=== PATIENT | male | born 1945 | race Caucasian/White ===

== ENCOUNTER → 2019-09-03 | Day surgery (SDC) | payer OTHER ==
[~2019-09-03] MED LIST: CELEBREX100 MG PO; FUROSEMIDE40 MG PO; GLYCOPYRROLATE INJ 0.2 MG/ML VIAL ONE; LEVSIN0.125 MG SL; LINZESS290 MCG PO; LISINOPRIL10 MG PO; LYRICA75 MG PO; MORPHINE SULFAT30 M2 PO; NORCO 10-325 T1 EACH PO; PANTOPRAZOLE SO40 MG PO; POTASSIUM CHLO20 ME1 PO; PROMETHAZINE HC25 M1 PO; PROPOFOL IV EMULSION 10 MG/ML 20 ML VIAL ONE; ZOFRAN4 MG PO; [UNRECOGNIZED DRUG - OTHER] PO
--- OUTSIDE RECORDS SUMMARY | 2019-09-03 12:35 | XMS REPORT ---
Author Author [facility] Address Unknown Phone Unavailable Care Team Providers Care Automotive Service Consultant Name Role Phone Unavailable Unavailable Payers Payer Name Policy Type Policy Number Effective Date Expiration Date Problems This patient has no known problems. Allergies, Adverse Reactions, Alerts Allergy Name Allergy Type Status Severity Reaction(s) Onset Date Inactive Date Treating Clinician Comments No Known Allergies DA Active U 2019-05-10 00:00:00 No Known Allergies DA Active U 2018-08-30 00:00:00 No Known Drug Intolerances DA Active U 2009-02-18 00:00:00 No Known Contrast Allergies DA Active U 2009-02-13 00:00:00 No Known Drug Allergies DA Active U 2009-02-13 00:00:00 No Known Food Allergies DA Active U 2009-02-13 00:00:00 No Known Other Allergies DA Active U 2009-02-13 00:00:00 Medications This patient has no known medications. Results Test Description Test Time Test Comments Text Results Atomic Results Result Comments - XR CHEST 1 V 2019-07-24 10:01:00 Name: BERENICE CHAUDHRY [facility] : 1945 Age/S: 73 / M [id number] Unit #: [id number] Loc: [place] [address] Phys: Álvaro Rios MD Acct: [id number] Dis Date: Status: REG ER PHONE #: [phone] Exam Date: 07/24/2019 0954 FAX #: Reason: SOB EXAMS: CPT: [id number] XR CHEST 1 V 21451 Fluoro Time: DAP (Gy m2): Air Kerma (mGy): LOCATION: T18 EXAM: CHEST 1 VIEW INDICATION: , SOB COMPARISON: Chest x-ray July 19, 2019. TECHNIQUE: AP chest radiograph. FINDINGS: Lungs are clear bilaterally without effusion. Heart is normal in size. Intrathecal leads again noted. Aorta is tortuous. Bones are unchanged. IMPRESSION: Lungs are clear. No acute abnormality. at 1001 Reported and signed by: Robert Ang M.D. CC: Álvaro Rios MD; Julius Barnhart DO PAGE 1 Signed Report Name: BERENICE CHAUDHRY [facility] : 1945 Age/S: 73 / M [address] Unit #: [id number] Loc: [place] [address] Phys: Álvaro Rios MD Acct: [id number] Dis Date: Status: REG ER PHONE #: [phone] Exam Date: 07/24/2019 0954 FAX #: Reason: SOB EXAMS: CPT: [id number] XR CHEST 1 V 25928 Fluoro Time: DAP (Gy m2): Air Kerma (mGy): <Continued> Technologist: Kaur Harris, RT(R) Trnscb Date/Time: 07/24/2019 (1001) [email or web address] Orig Print D/T: S: 07/24/2019 (1004) PAGE 2 Signed Report CREATINE KINASE (CK) 2019-07-24 09:58:00 CREATINE KINASE (CK) (test code=CK) 264 Unit/L 26-192 NT PRO-BRAIN NATRIURETIC [id number] 09:58:00* Test Item Value Reference Range Comments NT PRO-BRAIN NATRIURETIC PEPTI (test code=PROBNP) 447 PG/ML 0-100 CBC W/O [id number] 09:43:00* Test Item Value Reference Range Comments WHITE BLOOD CELL (test code=WBC) 5.8 K/mm3 3.5-11.0 RED BLOOD CELL (test code=RBC) 3.49 M/mm3 4.70-6.10 HEMOGLOBIN (test code=HGB) 9.6 G/DL 12.3-15.9 HEMATOCRIT (test code=HCT) 29.1 % 35.8-46.7 MEAN CELL VOLUME (test code=MCV) 83.4 Fl 86.3-98.9 MEAN CELL HGB (test code=MCH) 27.5 pg 28.9-34.4 MEAN CELL HGB CONCETRATION (test code=MCHC) 33.0 G/DL 32.1-34.5 RED CELL DISTRIBUTION WIDTH (test code=RDW) 15.7 SD 11.5-14.5 PLATELET COUNT (test code=PLT) 256.0 K/mm3 150-450 MEAN PLATELET VOLUME (test code=MPV) 9.20 fL 7.0-9.6 TROPONIN I [id number] 09:39:00* Test Item Value Reference Range Comments TROPONIN I RAPID (test code=TROPIRAP) 0.04 ng/mL 0.00-0.08 - The use of serial sampling and testing protocol is a recommended practice- An elevated troponin level alone is often not sufficient for diagnosis of myocardial infarction. CHEMISTRY 8 [id number] 09:30:00* Test Item Value Reference Range Comments ISTAT-SODIUM (test code=NAP) mmol/L 135-146 ISTAT-POTASSIUM (test code=KP) mmol/L 3.5-4.9 ISTAT-CHLORIDE (test code=CLP) mmol/L 98-109 ISTAT-CARBON DIOXIDE (test code=ISTAT-CO2) mmol/L 24-29 ISTAT CALCIUM IONIZED (test code=ISTAT-OH) mmol/L 1.12-1.32 ISTAT-GLUCOSE (test code=GLUP) mg/dL 70-105 ISTAT-BUN (test code=BUNP) mg/dL 8-26 BEDSIDE CREATININE (test code=CREATBED) mg/dL 0.6-1.3 GLOMERULAR FILTRATION RATE POC (test code=GFRBED) 42 42-98 CHEMISTRY 8 [id number] 09:30:00* Test Item Value Reference Range Comments ISTAT-SODIUM (test code=NAP) 135 mmol/L 135-146 ISTAT-POTASSIUM (test code=KP) 2.7 mmol/L 3.5-4.9 ISTAT-CHLORIDE (test code=CLP) 88 mmol/L 98-109 ISTAT-CARBON DIOXIDE (test code=ISTAT-CO2) 31 mmol/L 24-29 ISTAT CALCIUM IONIZED (test code=ISTAT-HO) 1.10 mmol/L 1.12-1.32 ISTAT-GLUCOSE (test code=GLUP) 153 mg/dL 70-105 ISTAT-BUN (test code=BUNP) 19 mg/dL 8-26 BEDSIDE CREATININE (test code=CREATBED) 1.7 mg/dL 0.6-1.3 GLOMERULAR FILTRATION RATE POC (test code=GFRBED) 42 42-98 - CT C-SPINE W/O [id number] 14:43:00 Name: BERENICE CHAUDHRY [facility] : 1945 Age/S: 73 / M [address] Unit #: [id number] Loc: [place] [address] Phys: Aiden Carrillo MD Acct: [id number] Dis Date: Status: REG ER PHONE #: [phone] Exam Date: 07/19/2019 1430 FAX #: Reason: neck pain EXAMS: CPT: [id number] CT C-SPINE W/O CONT 00079 EXAM: - CT C-SPINE W/O CONT Location code:C3 HISTORY: 73 years -old Male with neck pain TECHNIQUE: Axial CT images through the cervical spine were obtained without intravenous contrast. Sagittal and coronal reformatted images were created from the data set. One or more of the following dose reduction techniques were used: Automated exposure control, adjustment of the mA and/or kV according to patient size, and/or utilization of iterative reconstruction technique. COMPARISON: None FINDINGS: Bones: There is cervical straightening. Postoperative changes are noted of prior anterior fusion from C3 through C6. There is osseous fusion of C6-7. There is anterolisthesis of C7 on T1. No acute fracture identified. The prevertebral soft tissues are within normal limits. No other acute abnormalities demonstrated. IMPRESSION: Postoperative changes and extensive multilevel degenerative changes of the spine are present. No acute fracture or other acute osseous abnormalities. at 1443 Reported and signed by: Binu Lowe M.D. CC: Ninfa ROOT; Aiden Carrillo MD Technologist:Justin Land RT(R)(CT) CTDI: DLP: Trnscb Date/Time: 07/19/2019 (7180) [email or web address] Orig Print D/T: S: 07/19/2019 (8471) PAGE 1 Signed Report COMPREHENSIVE METABOLIC [id number] 13:50:00* Test Item Value Reference Range Comments SODIUM (test code=NA) 135 mmol/L 134-147 POTASSIUM (test code=K) 3.1 mmol/L 3.4-5.0 CHLORIDE (test code=CL) 94 mmol/L 100-108 CARBON DIOXIDE (test code=CO2) 34 mmol/L 21-32 ANION GAP (test code=GAP) 7.0 GAP calc 4.0-15.0 GLUCOSE (test code=GLU) 101 MG/DL 70-110 BLOOD UREA NITROGEN (test code=BUN) 17 MG/DL 7-18 GLOMERULAR FILTRATION RATE (test code=GFR) 46 estGFR >60 CREATININE (test code=CREAT) 1.6 MG/DL 0.8-1.3 TOTAL PROTEIN (test code=PROT) 7.2 G/DL 6.4-8.2 ALBUMIN (test code=ALB) 3.6 G/DL 3.4-5.0 GLOBULIN (test code=GLOB) 3.6 GM/dL ALBUMIN/GLOBULIN RATIO (test code=A/G) 1.0 RATIO 1.2-2.2 CALCIUM (test code=CA) 8.6 MG/DL 8.5-10.1 BILIRUBIN TOTAL (test code=BILT) 0.60 MG/DL 0.2-1.2 SGOT/AST (test code=AST) 19 Unit/L 15-37 SGPT/ALT (test code=ALT) 20 Unit/L 12-78 ALKALINE PHOSPHATASE TOTAL (test code=ALKP) 114 Unit/L 50-136 NT PRO-BRAIN NATRIURETIC [id number] 13:50:00* Test Item Value Reference Range Comments NT PRO-BRAIN NATRIURETIC PEPTI (test code=PROBNP) 422 PG/ML 0-100 [id number] 13:50:00* Test Item Value Reference Range Comments TROPONIN-I (test code=TROPI) < 0.015 NG/ML 0.000-0.045 Negative: </=0.045 Positive: >/=0.046 Correlation with serial results, other cardiac markers, and clinical findings is necessary to determine the clinical significance of this result. Quantitative results using different methodologies should not be compared to one another as numerical results may varyby method. CBC W/O [id number] 13:32:00* Test Item Value Reference Range Comments WHITE BLOOD CELL (test code=WBC) 5.2 K/mm3 3.5-11.0 RED BLOOD CELL (test code=RBC) 3.47 M/mm3 4.70-6.10 HEMOGLOBIN (test code=HGB) 9.6 G/DL 12.3-15.9 HEMATOCRIT (test code=HCT) 29.1 % 35.8-46.7 MEAN CELL VOLUME (test code=MCV) 83.9 Fl 86.3-98.9 MEAN CELL HGB (test code=MCH) 27.7 pg 28.9-34.4 MEAN CELL HGB CONCETRATION (test code=MCHC) 33.0 G/DL 32.1-34.5 RED CELL DISTRIBUTION WIDTH (test code=RDW) 16.1 SD 11.5-14.5 PLATELET COUNT (test code=PLT) 231.0 K/mm3 150-450 MEAN PLATELET VOLUME (test code=MPV) 9.70 fL 7.0-9.6 - XR CHEST 1 [id number] 13:24:00 Name: BERENICE CHAUDHRY [facility] : 1945 Age/S: 73 / M [address] [facility] [address] Unit #: [id number] Loc: [place] [address] Phys: Aiden Carrillo MD Acct: [id number] Dis Date: Status: REG ER PHONE #: [phone] Exam Date: 07/19/2019 1325 FAX #: Reason: SOB EXAMS: CPT: [id number] XR CHEST 1 V 01710 Fluoro Time: DAP (Gy m2): Air Kerma (mGy): EXAMINATION: - XR CHEST 1 V. LOCATION: S17. HISTORY: SOB, neck pain. COMPARISON: Chest x-ray 05/26/19. FINDINGS: Examination is limited due to portable technique, patient body habitus and low lung volumes. Cardiac silhouette/Mediastinal contour: Prominence of cardiac silhouette. Atherosclerotic calcification of aortic arch and uncoiling of thoracic aorta. Lungs: No focal consolidation. No large pleural effusion. Right middle lobe atelectasis versus scarring reidentified. Osseous Structures: Degenerative changes of thoracic spine. Additional Findings: ACDF involving cervical spine. Thoracic spinal stimulator device noted. IMPRESSION: No focal consolidation. Other findings as above. at 1324 Reported and signed by: Dianna Clifton M.D. CC: Ninfa ROOT; Aiden figueroa MD PAGE 1 Signed Report Name: BERENICE CHAUDHRY [facility] [place] : 1945 Age/S: 73 / M [address] Unit #: [id number] Loc: [place] [address] Phys: Aiden Carrillo MD Acct: [id number] Dis Date: Status: REG ER PHONE #: [phone] Exam Date: 07/19/2019 1320 FAX #: Reason: SOB EXAMS: CPT: [id number] XR CHEST 1 V 71623 Fluoro Time: DAP (Gy m2): Air Kerma (mGy): <Continued> Technologist: Justin Land RT(R)(CT) Trnscb Date/Time: 07/19/2019 (1244) [email or web address] Orig Print D/T: S: 07/19/2019 (0075) PAGE 2 Signed Report CBC W/AUTO [id number] 04:12:00* Test Item Value Reference Range Comments WHITE BLOOD CELL (test code=WBC) 5.1 K/mm3 3.5-11.0 RED BLOOD CELL (test code=RBC) 3.36 M/mm3 4.70-6.10 HEMOGLOBIN (test code=HGB) 9.5 G/DL 12.3-15.9 HEMATOCRIT (test code=HCT) 28.4 % 35.8-46.7 MEAN CELL VOLUME (test code=MCV) 84.5 Fl 86.3-98.9 MEAN CELL HGB (test code=MCH) 28.3 pg 28.9-34.4 MEAN CELL HGB CONCETRATION (test code=MCHC) 33.5 G/DL 32.1-34.5 RED CELL DISTRIBUTION WIDTH (test code=RDW) 15.7 SD 11.5-14.5 PLATELET COUNT (test code=PLT) 179.0 K/mm3 150-450 MEAN PLATELET VOLUME (test code=MPV) 9.80 fL 7.0-9.6 NEUTROPHIL % (test code=NT%) 77.7 % 40-76 LYMPHOCYTE % (test code=LY%) 9.7 % 20.5-51.1 MONOCYTE % (test code=MO%) 7.9 % 1.7-9.3 EOSINOPHIL % (test code=EO%) 4.3 % 0.0-6.0 BASOPHIL % (test code=BA%) 0.4 % 0.0-2.0 NEUTROPHIL # (test code=NT#) 3.93 K/mm3 1.8-7.6 LYMPHOCYTE # (test code=LY#) 0.5 K/mm3 0.6-3.0 MONOCYTE # (test code=MO#) 0.4 K/mm3 0.2-1.5 EOSINOPHIL # (test code=EO#) 0.2 K/mm3 0.0-0.4 BASOPHIL # (test code=BA#) 0.0 K/mm3 0.0-0.2 MANUAL DIFF REQUIRED (test code=MDIFF) NO DIFF/SCN CRITERIA SLIDE REVIEW CONSISTANT WITH AUTO DIFFERENTIAL. BASIC METABOLIC [id number] 04:02:00* Test Item Value Reference Range Comments SODIUM (test code=NA) 139 mmol/L 134-147 POTASSIUM (test code=K) 4.1 mmol/L 3.4-5.0 CHLORIDE (test code=CL) 99 mmol/L 100-108 CARBON DIOXIDE (test code=CO2) 32 mmol/L 21-32 ANION GAP (test code=GAP) 8.0 GAP calc 4.0-15.0 GLUCOSE (test code=GLU) 104 MG/DL 70-110 BLOOD UREA NITROGEN (test code=BUN) 21 MG/DL 7-18 GLOMERULAR FILTRATION RATE (test code=GFR) 46 estGFR >60 CREATININE (test code=CREAT) 1.6 MG/DL 0.8-1.3 CALCIUM (test code=CA) 8.8 MG/DL 8.5-10.1 CBC W/AUTO [id number] 03:56:00* Test Item Value Reference Range Comments WHITE BLOOD CELL (test code=WBC) 5.1 K/mm3 3.5-11.0 RED BLOOD CELL (test code=RBC) 3.36 M/mm3 4.70-6.10 HEMOGLOBIN (test code=HGB) 9.5 G/DL 12.3-15.9 HEMATOCRIT (test code=HCT) 28.4 % 35.8-46.7 MEAN CELL VOLUME (test code=MCV) 84.5 Fl 86.3-98.9 MEAN CELL HGB (test code=MCH) 28.3 pg 28.9-34.4 MEAN CELL HGB CONCETRATION (test code=MCHC) 33.5 G/DL 32.1-34.5 RED CELL DISTRIBUTION WIDTH (test code=RDW) 15.7 SD 11.5-14.5 PLATELET COUNT (test code=PLT) 179.0 K/mm3 150-450 MEAN PLATELET VOLUME (test code=MPV) 9.80 fL 7.0-9.6 NEUTROPHIL % (test code=NT%) % 40-76 LYMPHOCYTE % (test code=LY%) % 20.5-51.1 MONOCYTE % (test code=MO%) % 1.7-9.3 EOSINOPHIL % (test code=EO%) % 0.0-6.0 BASOPHIL % (test code=BA%) % 0.0-2.0 NEUTROPHIL # (test code=NT#) K/mm3 1.8-7.6 LYMPHOCYTE # (test code=LY#) K/mm3 0.6-3.0 MONOCYTE # (test code=MO#) K/mm3 0.2-1.5 EOSINOPHIL # (test code=EO#) K/mm3 0.0-0.4 BASOPHIL # (test code=BA#) K/mm3 0.0-0.2 MANUAL DIFF REQUIRED (test code=MDIFF) DIFF/SCN CRITERIA - XR T-SPINE 2 [id number] 19:07:00 Name: BERENICE CHAUDHRY [facility] : 1945 Age/S: 73 / M [address] Unit #: [id number] Loc: [place] [address] Phys: Jose Bains MD Acct: [id number] Dis Date: Status: ADM IN PHONE #: [phone] Exam Date: 05/27/2019 1825 FAX #: Reason: pain EXAMS: CPT: [id number] XR T-SPINE 2 VIEWS 45002 Fluoro Time: DAP (Gy m2): Air Kerma (mGy): LOCATION: Q15 HISTORY: 73-year-old male who presents with mid back pain. COMMENT: Frontal, lateral, and swimmers lateral radiographs of the thoracic spine were examined. The skeleton is intact and the alignment is anatomic. Mild degenerative disc disease is seen throughout the anatomy. The paraspinous soft tissues are unremarkable. Dorsal column stimulator electrodes are present, and orthopedic hardware is seen in the lower cervical spine. IMPRESSION: There is no radiographic evidence of acute or destructive lesions in this patient's thoracic spine. Please see above comments for details. at 190 Reported and signed by: Binu Carty M.D. CC: Julius Barnhart DO; Jose Bains MD PAGE 1 Signed Report Name: BERENICE CHAUDHRY [facility] : 1945 Age/S: 73 / M [address] Unit #: [id number] Loc: [place] [address] Phys: Jose Bains MD Acct: [id number] Dis Date: Status: ADM IN PHONE #: [phone] Exam Date: 05/27/2019 1825 FAX #: Reason: pain EXAMS: CPT: [id number] XR T-SPINE 2 VIEWS 66701 Fluoro Time: DAP (Gy m2): Air Kerma (mGy): <Continued> Technologist: Ming Kirkpatrick, RT(R)(CT) Trnscb Date/Time: 05/27/2019 (1906) [email or web address] Orig Print D/T: S: 05/27/2019 (1909) PAGE 2 Signed Report CBC W/AUTO [id number] 04:03:00* Test Item Value Reference Range Comments WHITE BLOOD CELL (test code=WBC) 4.3 K/mm3 3.5-11.0 RED BLOOD CELL (test code=RBC) 3.01 M/mm3 4.70-6.10 HEMOGLOBIN (test code=HGB) 8.4 G/DL 12.3-15.9 HEMATOCRIT (test code=HCT) 25.5 % 35.8-46.7 MEAN CELL VOLUME (test code=MCV) 84.7 Fl 86.3-98.9 MEAN CELL HGB (test code=MCH) 27.9 pg 28.9-34.4 MEAN CELL HGB CONCETRATION (test code=MCHC) 32.9 G/DL 32.1-34.5 RED CELL DISTRIBUTION WIDTH (test code=RDW) 15.9 SD 11.5-14.5 PLATELET COUNT (test code=PLT) 162.0 K/mm3 150-450 MEAN PLATELET VOLUME (test code=MPV) 9.50 fL 7.0-9.6 NEUTROPHIL % (test code=NT%) 68.7 % 40-76 LYMPHOCYTE % (test code=LY%) 17.6 % 20.5-51.1 MONOCYTE % (test code=MO%) 8.6 % 1.7-9.3 EOSINOPHIL % (test code=EO%) 4.4 % 0.0-6.0 BASOPHIL % (test code=BA%) 0.7 % 0.0-2.0 NEUTROPHIL # (test code=NT#) 2.97 K/mm3 1.8-7.6 LYMPHOCYTE # (test code=LY#) 0.8 K/mm3 0.6-3.0 MONOCYTE # (test code=MO#) 0.4 K/mm3 0.2-1.5 EOSINOPHIL # (test code=EO#) 0.2 K/mm3 0.0-0.4 BASOPHIL # (test code=BA#) 0.0 K/mm3 0.0-0.2 MANUAL DIFF REQUIRED (test code=MDIFF) NO DIFF/SCN CRITERIA BASIC METABOLIC [id number] 04:03:00* Test Item Value Reference Range Comments SODIUM (test code=NA) 136 mmol/L 134-147 POTASSIUM (test code=K) 3.6 mmol/L 3.4-5.0 CHLORIDE (test code=CL) 98 mmol/L 100-108 CARBON DIOXIDE (test code=CO2) 31 mmol/L 21-32 ANION GAP (test code=GAP) 7.0 GAP calc 4.0-15.0 GLUCOSE (test code=GLU) 102 MG/DL 70-110 BLOOD UREA NITROGEN (test code=BUN) 20 MG/DL 7-18 GLOMERULAR FILTRATION RATE (test code=GFR) 53 estGFR >60 CREATININE (test code=CREAT) 1.4 MG/DL 0.8-1.3 CALCIUM (test code=CA) 8.5 MG/DL 8.5-10.1 UA RFLX MICR CULT IF [id number] 03:17:00* Test Item Value Reference Range Comments UA COLOR (test code=COLU) YELLOW discript YEL/STRAW UA APPEARANCE (test code=APPU) CLEAR discript CLEAR UA GLUCOSE DIPSTICK (test code=DGLUU) NEGATIVE mg/dL NEG UA BILIRUBIN DIPSTICK (test code=BILU) NEGATIVE mg/dL NEG UA KETONE DIPSTICK (test code=KETU) NEGATIVE mg/dL NEG UA SPECIFIC GRAVITY (test code=SGU) <=1.005 SG 1.005-1.030 UA BLOOD DIPSTICK (test code=FELECIA) 1+ mg/DL NEG UA PH DIPSTICK (test code=JAKUB) 7.0 pH UNITS 5.0-7.0 UA PROTEIN DIPSTICK (test code=PROU) NEGATIVE mg/dL NEG UA UROBILINIOGEN DIPSTICK (test code=URO) 0.2 mg/dL <2.0 UA NITRITE DIPSTICK (test code=JHONATHAN) POSITIVE SCREEN NEG UA LEUKOCYTE ESTERASE DIPSTICK (test code=LEUU) 2+ Leuk/mcL NEGATIVE UA WBC (test code=WBCU) 10-20 #WBC/HPF 0-3 UA RBC (test code=RBCU) 0-1 #RBC/HPF 0-3 UA BACTERIA (test code=BACU) 1+ /HPF NONE-TRACE UA SQUAMOUS CELLS (test code=SQU) TRACE /HPF NONE UA CULTURE NEEDED? (test code=UACULT) YES,WBC>10 & EPI<25 Criteria Culture CHK SOURCE OF URINE: MAGDALENO CATHETERIndication for culture: Suprapubic PainUA RFLX MICR CULT IF [id number] 03:07:00* Test Item Value Reference Range Comments UA COLOR (test code=COLU) YELLOW discript YEL/STRAW UA APPEARANCE (test code=APPU) CLEAR discript CLEAR UA GLUCOSE DIPSTICK (test code=DGLUU) NEGATIVE mg/dL NEG UA BILIRUBIN DIPSTICK (test code=BILU) NEGATIVE mg/dL NEG UA KETONE DIPSTICK (test code=KETU) NEGATIVE mg/dL NEG UA SPECIFIC GRAVITY (test code=SGU) <=1.005 SG 1.005-1.030 UA BLOOD DIPSTICK (test code=FELECIA) 1+ mg/DL NEG UA PH DIPSTICK (test code=JAKUB) 7.0 pH UNITS 5.0-7.0 UA PROTEIN DIPSTICK (test code=PROU) NEGATIVE mg/dL NEG UA UROBILINIOGEN DIPSTICK (test code=URO) 0.2 mg/dL <2.0 UA NITRITE DIPSTICK (test code=JHONATHAN) POSITIVE SCREEN NEG UA LEUKOCYTE ESTERASE DIPSTICK (test code=LEUU) 2+ Leuk/mcL NEGATIVE UA CULTURE NEEDED? (test code=UACULT) Criteria Culture CHK SOURCE OF URINE: MAGDALENO CATHETERIndication for culture: Suprapubic PainCBC W/AUTO [id number] 01:14:00* Test Item Value Reference Range Comments WHITE BLOOD CELL (test code=WBC) 4.5 K/mm3 3.5-11.0 RED BLOOD CELL (test code=RBC) 3.19 M/mm3 4.70-6.10 HEMOGLOBIN (test code=HGB) 9.0 G/DL 12.3-15.9 HEMATOCRIT (test code=HCT) 26.8 % 35.8-46.7 MEAN CELL VOLUME (test code=MCV) 84.0 Fl 86.3-98.9 MEAN CELL HGB (test code=MCH) 28.2 pg 28.9-34.4 MEAN CELL HGB CONCETRATION (test code=MCHC) 33.6 G/DL 32.1-34.5 RED CELL DISTRIBUTION WIDTH (test code=RDW) 15.7 SD 11.5-14.5 PLATELET COUNT (test code=PLT) 165.0 K/mm3 150-450 MEAN PLATELET VOLUME (test code=MPV) 9.00 fL 7.0-9.6 NEUTROPHIL % (test code=NT%) 74.1 % 40-76 LYMPHOCYTE % (test code=LY%) 12.6 % 20.5-51.1 MONOCYTE % (test code=MO%) 9.1 % 1.7-9.3 EOSINOPHIL % (test code=EO%) 3.8 % 0.0-6.0 BASOPHIL % (test code=BA%) 0.4 % 0.0-2.0 NEUTROPHIL # (test code=NT#) 3.35 K/mm3 1.8-7.6 LYMPHOCYTE # (test code=LY#) 0.6 K/mm3 0.6-3.0 MONOCYTE # (test code=MO#) 0.4 K/mm3 0.2-1.5 EOSINOPHIL # (test code=EO#) 0.2 K/mm3 0.0-0.4 BASOPHIL # (test code=BA#) 0.0 K/mm3 0.0-0.2 MANUAL DIFF REQUIRED (test code=MDIFF) NO DIFF/SCN CRITERIA SLIDE REVIEW CONSISTANT WITH AUTO DIFFERENTIAL. CBC W/AUTO [id number] 01:13:00* Test Item Value Reference Range Comments WHITE BLOOD CELL (test code=WBC) 4.5 K/mm3 3.5-11.0 RED BLOOD CELL (test code=RBC) 3.19 M/mm3 4.70-6.10 HEMOGLOBIN (test code=HGB) 9.0 G/DL 12.3-15.9 HEMATOCRIT (test code=HCT) 26.8 % 35.8-46.7 MEAN CELL VOLUME (test code=MCV) 84.0 Fl 86.3-98.9 MEAN CELL HGB (test code=MCH) 28.2 pg 28.9-34.4 MEAN CELL HGB CONCETRATION (test code=MCHC) 33.6 G/DL 32.1-34.5 RED CELL DISTRIBUTION WIDTH (test code=RDW) 15.7 SD 11.5-14.5 PLATELET COUNT (test code=PLT) 165.0 K/mm3 150-450 MEAN PLATELET VOLUME (test code=MPV) 9.00 fL 7.0-9.6 NEUTROPHIL % (test code=NT%) % 40-76 LYMPHOCYTE % (test code=LY%) % 20.5-51.1 MONOCYTE % (test code=MO%) % 1.7-9.3 EOSINOPHIL % (test code=EO%) % 0.0-6.0 BASOPHIL % (test code=BA%) % 0.0-2.0 NEUTROPHIL # (test code=NT#) K/mm3 1.8-7.6 LYMPHOCYTE # (test code=LY#) K/mm3 0.6-3.0 MONOCYTE # (test code=MO#) K/mm3 0.2-1.5 EOSINOPHIL # (test code=EO#) K/mm3 0.0-0.4 BASOPHIL # (test code=BA#) K/mm3 0.0-0.2 MANUAL DIFF REQUIRED (test code=MDIFF) DIFF/SCN CRITERIA [id number] 00:24:00* Test Item Value Reference Range Comments POTASSIUM (test code=K) 3.1 mmol/L 3.4-5.0 Completed by Nursing: [id number] 00:24:00* Test Item Value Reference Range Comments TROPONIN-I (test code=TROPI) < 0.015 NG/ML 0.000-0.045 Negative: </=0.045 Positive: >/=0.046 Correlation with serial results, other cardiac markers, and clinical findings is necessary to determine the clinical significance of this result. Quantitative results using different methodologies should not be compared to one another as numerical results may varyby method. Completed by Nursing: [id number] 20:51:00* Test Item Value Reference Range Comments TROPONIN-I (test code=TROPI) < 0.015 NG/ML 0.000-0.045 Negative: </=0.045 Positive: >/=0.046 Correlation with serial results, other cardiac markers, and clinical findings is necessary to determine the clinical significance of this result. Quantitative results using different methodologies should not be compared to one another as numerical results may varyby method. Completed by Nursing: NOPROTHROMBIN [id number] 19:19:00* Test Item Value Reference Range Comments PT PATIENT (test code=PTP) 13.1 SECONDS 9.3-12.9 INTERNATIONAL NORMAL RATIO (test code=INR) 1.14 INR Unit 0.8-1.2 THROMBOPLASTIN TIME [id number] 19:19:00* Test Item Value Reference Range Comments THROMBOPLASTIN TIME PARTIAL (test code=PTT) 32.1 SECONDS 26-35 COMPREHENSIVE METABOLIC [id number] 19:16:00* Test Item Value Reference Range Comments SODIUM (test code=NA) 137 mmol/L 134-147 POTASSIUM (test code=K) 2.9 mmol/L 3.4-5.0 CHLORIDE (test code=CL) 95 mmol/L 100-108 CARBON DIOXIDE (test code=CO2) 32 mmol/L 21-32 ANION GAP (test code=GAP) 10.0 GAP calc 4.0-15.0 GLUCOSE (test code=GLU) 162 MG/DL 70-110 BLOOD UREA NITROGEN (test code=BUN) 21 MG/DL 7-18 GLOMERULAR FILTRATION RATE (test code=GFR) 46 estGFR >60 CREATININE (test code=CREAT) 1.6 MG/DL 0.8-1.3 TOTAL PROTEIN (test code=PROT) 7.1 G/DL 6.4-8.2 ALBUMIN (test code=ALB) 3.5 G/DL 3.4-5.0 GLOBULIN (test code=GLOB) 3.6 GM/dL ALBUMIN/GLOBULIN RATIO (test code=A/G) 1.0 RATIO 1.2-2.2 CALCIUM (test code=CA) 8.7 MG/DL 8.5-10.1 BILIRUBIN TOTAL (test code=BILT) 0.40 MG/DL 0.2-1.2 SGOT/AST (test code=AST) 25 Unit/L 15-37 SGPT/ALT (test code=ALT) 27 Unit/L 12-78 ALKALINE PHOSPHATASE TOTAL (test code=ALKP) 123 Unit/L 50-136 CREATINE KINASE (CK)2019-05-26 19:16:00* Test Item Value Reference Range Comments CREATINE KINASE (CK) (test code=CK) 115 Unit/L 26-192 NT PRO-BRAIN NATRIURETIC [id number] 19:16:00* Test Item Value Reference Range Comments NT PRO-BRAIN NATRIURETIC PEPTI (test code=PROBNP) 482 PG/ML 0-100 [id number] 19:16:00* Test Item Value Reference Range Comments TROPONIN-I (test code=TROPI) < 0.015 NG/ML 0.000-0.045 Negative: </=0.045 Positive: >/=0.046 Correlation with serial results, other cardiac markers, and clinical findings is necessary to determine the clinical significance of this result. Quantitative results using different methodologies should not be compared to one another as numerical results may varyby method. - XR CHEST 1 [id number] 19:16:00 Name: BERENICE CHAUDHRY [facility] : 1945 Age/S: 73 / M [id number] [address] Unit #: [id number] Loc: [place] [address] Phys: Milly Narayanan MD Acct: [id number] Dis Date: Status: REG ER PHONE #: [phone] Exam Date: 05/26/20191905 FAX #: Reason: Chest Pain EXAMS: CPT: [id number] XR CHEST 1 V [id number] Fluoro Time: DAP (Gy m2): Air Kerma (mGy): EXAM: - XR CHEST 1 V HISTORY: Chest pain. COMPARISON: May 20, 2019. FINDINGS: Single AP view of the chest is provided. Heart size and vascularity are within normal limits. Ectatic thoracic aorta. Trace linear atelectasis in mid right lung. The lungs are clear of focal consolidation. No effusion, pneumothorax, or acute osseous abnormality. There is no significant change compared to previous exam. Spinal stimulator projecting over the mid thoracic spine. IMPRESSION: No interval change. No consolidation or effusion. at 1916 Reported and signed by: Sarath Williamson M.D. CC: Milly Narayanan MD; Julius Barnhart DO; Ninfa ROOT PAGE 1 Signed Report Name: BERENICE CHAUDHRY [facility] : 1945 Age/S: 73 / M [address] Unit #: [id number] Loc: [place] [address] Phys: Milly Narayanan MD Acct: [id number] Dis Date: Status: REG ER PHON E #: [phone] Exam Date: 05/26/20191905 FAX #: Reason: Chest Pain EXAMS: CPT: [id number] XR CHEST 1 V 17607 Fluoro Time: DAP (Gy m2): Air Kerma (mGy): <Continued> Technologist: Debbie Minor, RT(R)(CT); ... Trnscb Date/Time: 05/26/2019 (1915) Anders4 Orig Print D/T: S: 05/26/2019 (459) PAGE 2 Signed Report URINALYSIS [id number] 18:56:00* Test Item Value Reference Range Comments UA GLUCOSE DIPSTICK (test code=DGLUU) NEGATIVE mg/dL NEG UA BILIRUBIN DIPSTICK (test code=BILU) NEGATIVE mg/dL NEG UA KETONE DIPSTICK (test code=KETU) NEGATIVE mg/dL NEG UA SPECIFIC GRAVITY (test code=SGU) 1.010 SG 1.005-1.030 UA BLOOD DIPSTICK (test code=FELECIA) 2+ mg/DL NEG UA PH DIPSTICK (test code=JAKUB) 6.0 pH UNITS 5.0-7.0 UA PROTEIN DIPSTICK (test code=PROU) NEGATIVE mg/dL NEG UA UROBILINIOGEN DIPSTICK (test code=URO) 0.2 mg/dL <2.0 UA NITRITE DIPSTICK (test code=JHONATHAN) POSITIVE SCREEN NEG UA LEUKOCYTE ESTERASE DIPSTICK (test code=LEUU) 2+ Leuk/mcL NEGATIVE Urine Specimen Type: Magdaleno CatheterCOMPREHENSIVE METABOLIC [id number] 06:48:00* Test Item Value Reference Range Comments SODIUM (test code=NA) 137 mmol/L 134-147 POTASSIUM (test code=K) 3.4 mmol/L 3.4-5.0 CHLORIDE (test code=CL) 101 mmol/L 100-108 CARBON DIOXIDE (test code=CO2) 28 mmol/L 21-32 ANION GAP (test code=GAP) 8.0 GAP calc 4.0-15.0 GLUCOSE (test code=GLU) 86 MG/DL 70-110 BLOOD UREA NITROGEN (test code=BUN) 26 MG/DL 7-18 GLOMERULAR FILTRATION RATE (test code=GFR) 49 estGFR >60 CREATININE (test code=CREAT) 1.5 MG/DL 0.8-1.3 TOTAL PROTEIN (test code=PROT) 6.9 G/DL 6.4-8.2 ALBUMIN (test code=ALB) 3.7 G/DL 3.4-5.0 GLOBULIN (test code=GLOB) 3.2 GM/dL ALBUMIN/GLOBULIN RATIO (test code=A/G) 1.2 RATIO 1.2-2.2 CALCIUM (test code=CA) 9.1 MG/DL 8.5-10.1 BILIRUBIN TOTAL (test code=BILT) 0.50 MG/DL 0.2-1.2 SGOT/AST (test code=AST) 44 Unit/L 15-37 SGPT/ALT (test code=ALT) 36 Unit/L 12-78 ALKALINE PHOSPHATASE TOTAL (test code=ALKP) 100 Unit/L 50-136 CBC W/AUTO [id number] 06:33:00* Test Item Value Reference Range Comments WHITE BLOOD CELL (test code=WBC) 5.7 K/mm3 3.5-11.0 RED BLOOD CELL (test code=RBC) 3.96 M/mm3 4.70-6.10 HEMOGLOBIN (test code=HGB) 11.2 G/DL 12.3-15.9 HEMATOCRIT (test code=HCT) 33.8 % 35.8-46.7 MEAN CELL VOLUME (test code=MCV) 85.4 Fl 86.3-98.9 MEAN CELL HGB (test code=MCH) 28.3 pg 28.9-34.4 MEAN CELL HGB CONCETRATION (test code=MCHC) 33.1 G/DL 32.1-34.5 RED CELL DISTRIBUTION WIDTH (test code=RDW) 15.9 SD 11.5-14.5 PLATELET COUNT (test code=PLT) 193.0 K/mm3 150-450 MEAN PLATELET VOLUME (test code=MPV) 9.50 fL 7.0-9.6 NEUTROPHIL % (test code=NT%) 69.7 % 40-76 LYMPHOCYTE % (test code=LY%) 17.5 % 20.5-51.1 MONOCYTE % (test code=MO%) 7.8 % 1.7-9.3 EOSINOPHIL % (test code=EO%) 4.1 % 0.0-6.0 BASOPHIL % (test code=BA%) 0.9 % 0.0-2.0 NEUTROPHIL # (test code=NT#) 3.94 K/mm3 1.8-7.6 LYMPHOCYTE # (test code=LY#) 1.0 K/mm3 0.6-3.0 MONOCYTE # (test code=MO#) 0.4 K/mm3 0.2-1.5 EOSINOPHIL # (test code=EO#) 0.2 K/mm3 0.0-0.4 BASOPHIL # (test code=BA#) 0.1 K/mm3 0.0-0.2 MANUAL DIFF REQUIRED (test code=MDIFF) NO DIFF/SCN CRITERIA COMPREHENSIVE METABOLIC [id number] 07:48:00* Test Item Value Reference Range Comments SODIUM (test code=NA) 138 mmol/L 134-147 POTASSIUM (test code=K) 3.3 mmol/L 3.4-5.0 CHLORIDE (test code=CL) 102 mmol/L 100-108 CARBON DIOXIDE (test code=CO2) 29 mmol/L 21-32 ANION GAP (test code=GAP) 7.0 GAP calc 4.0-15.0 GLUCOSE (test code=GLU) 108 MG/DL 70-110 BLOOD UREA NITROGEN (test code=BUN) 29 MG/DL 7-18 GLOMERULAR FILTRATION RATE (test code=GFR) 46 estGFR >60 CREATININE (test code=CREAT) 1.6 MG/DL 0.8-1.3 TOTAL PROTEIN (test code=PROT) 6.5 G/DL 6.4-8.2 ALBUMIN (test code=ALB) 3.5 G/DL 3.4-5.0 GLOBULIN (test code=GLOB) 3.0 GM/dL ALBUMIN/GLOBULIN RATIO (test code=A/G) 1.2 RATIO 1.2-2.2 CALCIUM (test code=CA) 8.7 MG/DL 8.5-10.1 BILIRUBIN TOTAL (test code=BILT) 0.40 MG/DL 0.2-1.2 SGOT/AST (test code=AST) 55 Unit/L 15-37 SGPT/ALT (test code=ALT) 38 Unit/L 12-78 ALKALINE PHOSPHATASE TOTAL (test code=ALKP) 99 Unit/L 50-136 CPK-MB [id number] 07:48:00* Test Item Value Reference Range Comments CREATINE KINASE (CK) (test code=CK) 605 Unit/L 26-192 CKMB (test code=CKMBT) 9.0 NG/ML 0.0-4.9 RELATIVE % INDEX (test code=REL%) 1.4 % 0.0-2.5 [id number] 07:48:00* Test Item Value Reference Range Comments TROPONIN-I (test code=TROPI) < 0.015 NG/ML 0.000-0.045 Negative: </=0.045 Positive: >/=0.046 Correlation with serial results, other cardiac markers, and clinical findings is necessary to determine the clinical significance of this result. Quantitative results using different methodologies should not be compared to one another as numerical results may varyby method. CBC W/AUTO [id number] 07:16:00* Test Item Value Reference Range Comments WHITE BLOOD CELL (test code=WBC) 5.1 K/mm3 3.5-11.0 RED BLOOD CELL (test code=RBC) 3.49 M/mm3 4.70-6.10 HEMOGLOBIN (test code=HGB) 9.8 G/DL 12.3-15.9 HEMATOCRIT (test code=HCT) 30.3 % 35.8-46.7 MEAN CELL VOLUME (test code=MCV) 86.8 Fl 86.3-98.9 MEAN CELL HGB (test code=MCH) 28.1 pg 28.9-34.4 MEAN CELL HGB CONCETRATION (test code=MCHC) 32.3 G/DL 32.1-34.5 RED CELL DISTRIBUTION WIDTH (test code=RDW) 16.2 SD 11.5-14.5 PLATELET COUNT (test code=PLT) 169.0 K/mm3 150-450 MEAN PLATELET VOLUME (test code=MPV) 9.90 fL 7.0-9.6 NEUTROPHIL % (test code=NT%) 75.3 % 40-76 LYMPHOCYTE % (test code=LY%) 14.9 % 20.5-51.1 MONOCYTE % (test code=MO%) 8.0 % 1.7-9.3 EOSINOPHIL % (test code=EO%) 1.6 % 0.0-6.0 BASOPHIL % (test code=BA%) 0.2 % 0.0-2.0 NEUTROPHIL # (test code=NT#) 3.84 K/mm3 1.8-7.6 LYMPHOCYTE # (test code=LY#) 0.8 K/mm3 0.6-3.0 MONOCYTE # (test code=MO#) 0.4 K/mm3 0.2-1.5 EOSINOPHIL # (test code=EO#) 0.1 K/mm3 0.0-0.4 BASOPHIL # (test code=BA#) 0.0 K/mm3 0.0-0.2 MANUAL DIFF REQUIRED (test code=MDIFF) NO DIFF/SCN CRITERIA CPK-MB [id number] 23:11:00* Test Item Value Reference Range Comments CREATINE KINASE (CK) (test code=CK) 891 Unit/L 26-192 CKMB (test code=CKMBT) 12.5 NG/ML 0.0-4.9 RELATIVE % INDEX (test code=REL%) 1.4 % 0.0-2.5 - CT HEAD/BRAIN W/O [id number] 13:53:00 Name: BERENICE CHAUDHRY [facility] Sergio : 1945 Age/S: 73 / M [address] Unit #: [id number] Loc: [place] [address] Phys: Curt Martin MD Acct: [id number] Dis Date: Status: ADM IN PHONE #: [phone] Exam Date: 05/10/2019 1340 FAX #: Reason: Confusion EXAMS: CPT: [id number] CT HEAD/BRAIN W/O CONT 16792 Dictation location: L11. CT HEAD WITHOUT CONTRAST. HISTORY: Confusion COMPARISON: CT head 08/30/18. TECHNIQUE: Axial CT images of the head were obtained with coronal and/or sagittal reformatted views. Automated exposure control, iterative reconstruction technique, and/or adjustment of mA and/or kV according to patient's size was utilized for radiation dose reduction. IV CONTRAST: None. FINDINGS: Mild amount of periventricular and deep white matter hypodensities are seen, these are most commonly associated with chronic, microvascular ischemic changes. Mild generalized atrophy is noted. Atherosclerotic calcifications affect the carotid siphons. No other intracranial abnormalities such as hemorrhage, mass, mass effect, hydrocephalus, midli ne shift, extra-axial fluid collection or secondary signs of an acute infa rct are noted. The calvarium and skull base are intact. The parana angelica sinus and mastoid air cells are clear. IMPRESSION: No evidence of acute intracranial abnormality. Mild chronic microvascular ischemic changes and atrophy. Kianna ctronically Signed by Raza Archer on at 1353 Reported and signed by: Sa parveen Archer M.D. CC: Julius Barnhart DO; Curt Martin MD Technologist:Deja Iglesias RT(R)(MR) CTDI: DLP: Trn scb Date/Time: 05/10/2019 (4368) [email or web address] Orig Print D/T : S: 05/10/2019 (5005) PAGE 1 Signed Report [id number] 11:28:00* Test Item Value Reference Range Comments TROPONIN-I (test code=TROPI) < 0.015 NG/ML 0.000-0.045 Negative: </=0.045 Positive: >/=0.046 Correlation with serial results, other cardiac markers, and clinical findings is necessary to determine the clinical significance of this result. Quantitative results using different methodologies should not be compared to one another as numerical results may varyby method. Completed by Nursing: [id number] 07:05:00* Test Item Value Reference Range Comments TROPONIN-I (test code=TROPI) < 0.015 NG/ML 0.000-0.045 Negative: </=0.045 Positive: >/=0.046 Correlation with serial results, other cardiac markers, and clinical findings is necessary to determine the clinical significance of this result. Quantitative results using different methodologies should not be compared to one another as numerical results may varyby method. Completed by Nursing: NOHEPATIC FUNCTION [id number] 04:40:00* Test Item Value Reference Range Comments TOTAL PROTEIN (test code=PROT) 7.4 G/DL 6.4-8.2 ALBUMIN (test code=ALB) 4.0 G/DL 3.4-5.0 BILIRUBIN TOTAL (test code=BILT) 0.80 MG/DL 0.2-1.2 BILIRUBIN DIRECT (test code=BILD) 0.20 MG/DL 0.00-0.30 BILIRUBIN INDIRECT (test code=BILIND) 0.60 MG/DL 0.2-1.2 SGOT/AST (test code=AST) 49 Unit/L 15-37 SGPT/ALT (test code=ALT) 33 Unit/L 12-78 ALKALINE PHOSPHATASE TOTAL (test code=ALKP) 117 Unit/L 50-136 CREATINE KINASE (CK)2019-05-10 04:40:00* Test Item Value Reference Range Comments CREATINE KINASE (CK) (test code=CK) 1280 Unit/L 26-192 NT PRO-BRAIN NATRIURETIC [id number] 04:40:00* Test Item Value Reference Range Comments NT PRO-BRAIN NATRIURETIC PEPTI (test code=PROBNP) 726 PG/ML 0-100 - XR CHEST 1 [id number] 04:15:00 Name: BERENICE CHAUDHRY [facility] : 1945 Age/S: 73 / M [address] Unit #: [id number] Loc: [place] [address] Phys: Nino Wilcox MD Acct: [id number] Dis Date: Status: REG ER PHONE #: [phone] Exam Date: 05/10/2019407 FAX #: Reason: SOB EXAMS: CPT: [id number] XR CHEST 1 V 30726 Fluoro Time: DAP (Gy m2): Air Kerma (mGy): Site ID: [id number] HISTORY: Shortness of breath FINDINGS: The lungs are clear and normally expanded. The heart and pulmonary vasculature is normal. No acute osseous finding. Previous ACDF noted. Spinal epidural leads are present, terminating near the T8 level. IMPRESSION: Negative chest X- ray. at 2992 Reported and signed by: Ruma Mathis M.D. CC: PAGE 1 Signed Report Name: BERENICE CHAUDHRY [facility] : 1945 Age/S: 73 / M [address] Unit #: [id number] Loc: [place] [address] Phys: Nino Wilcox MD Acct: [id number] Dis Date: Status: REG ER PHONE #: [phone] Exam Date: 05/10/2019 0408 FAX #: Reason: SOB EXAMS: CPT: [id number] XR CHEST 1 V 56485 Fluoro Time: DAP (Gy m2): Air Kerma (mGy): <Continued> Technologist: [place] Varela RT(R)(CT) Trnscb Date/Time: 05/10/2019 (0419) [id number] Orig Print D/T: S: 05/10/2019 (0412) PAGE 2 Signed Report CBC W/O [id number] 04:13:00* Test Item Value Reference Range Comments WHITE BLOOD CELL (test code=WBC) 6.1 K/mm3 3.5-11.0 RED BLOOD CELL (test code=RBC) 3.65 M/mm3 4.70-6.10 HEMOGLOBIN (test code=HGB) 10.2 G/DL 12.3-15.9 HEMATOCRIT (test code=HCT) 31.7 % 35.8-46.7 MEAN CELL VOLUME (test code=MCV) 86.8 Fl 86.3-98.9 MEAN CELL HGB (test code=MCH) 27.9 pg 28.9-34.4 MEAN CELL HGB CONCETRATION (test code=MCHC) 32.2 G/DL 32.1-34.5 RED CELL DISTRIBUTION WIDTH (test code=RDW) 16.2 SD 11.5-14.5 PLATELET COUNT (test code=PLT) 179.0 K/mm3 150-450 MEAN PLATELET VOLUME (test code=MPV) 9.80 fL 7.0-9.6 CHEMISTRY 8 [id number] 04:02:00* Test Item Value Reference Range Comments ISTAT-SODIUM (test code=NAP) mmol/L 135-146 ISTAT-POTASSIUM (test code=KP) mmol/L 3.5-4.9 ISTAT-CHLORIDE (test code=CLP) mmol/L 98-109 ISTAT-CARBON DIOXIDE (test code=ISTAT-CO2) mmol/L 24-29 ISTAT CALCIUM IONIZED (test code=ISTAT-HO) mmol/L 1.12-1.32 ISTAT-GLUCOSE (test code=GLUP) mg/dL 70-105 ISTAT-BUN (test code=BUNP) mg/dL 8-26 BEDSIDE CREATININE (test code=CREATBED) mg/dL 0.6-1.3 GLOMERULAR FILTRATION RATE POC (test code=GFRBED) 30 42-98 CHEMISTRY 8 [id number] 04:02:00* Test Item Value Reference Range Comments ISTAT-SODIUM (test code=NAP) 140 mmol/L 135-146 ISTAT-POTASSIUM (test code=KP) 3.6 mmol/L 3.5-4.9 ISTAT-CHLORIDE (test code=CLP) 98 mmol/L 98-109 ISTAT-CARBON DIOXIDE (test code=ISTAT-CO2) 27 mmol/L 24-29 ISTAT CALCIUM IONIZED (test code=ISTAT-HO) 1.15 mmol/L 1.12-1.32 ISTAT-GLUCOSE (test code=GLUP) 160 mg/dL 70-105 ISTAT-BUN (test code=BUNP) 28 mg/dL 8-26 BEDSIDE CREATININE (test code=CREATBED) 2.3 mg/dL 0.6-1.3 GLOMERULAR FILTRATION RATE POC (test code=GFRBED) 30 42-98 TROPONIN I [id number] 03:59:00* Test Item Value Reference Range Comments TROPONIN I RAPID (test code=TROPIRAP) 0.01 ng/mL 0.00-0.08 - The use of serial sampling and testing protocol is a recommended practice- An elevated troponin level alone is often not sufficient for diagnosis of myocardial infarction. - CT ABD PELVIS [id number] 11:03:00 Name: ISIDOROBERENICE MAYNARD [facility] : 1945 Age/S: 73 / M [id number] [facility] [address] Unit #: [id number] Loc: [place] [address] Phys: JackAlmas Leoncio DO Acct: [id number] Dis Date: Status: REG PHONE #: [phone] Exam Date: 04/06/2019 1054 FAX #: Reason: diffuse pain EXAMS: CPT: [id number] CT ABD PELVIS W/CONT 52526 EXAM: CT ABDOMEN AND PELVIS WITH CONTRAST. INDICATION: DIFFUSE PAIN COMPARISON: None available TECHNIQUE: Axial CT imaging of the abdomen and pelvis was obtained after the administration of intravenous contrast. Coronal and sagittal reformatted images were submitted for review. IV contrast: 100 mL of Isovue-300 DLP: 410.69 mGy-cm FINDINGS: The heart size is normal. There is atelectasis noted in both lung bases. No pericardial or pleural effusion is identified. The liver, spleen, gallbladder, pancreas, and adrenal glands is unremarkable. No focal liver lesions are identified. No intrahepatic biliary duct dilatation. The main portal vein is patent and normal in size. The kidneys are normal in size. There are multiple simple cysts noted within both kidneys with the largest in the inferior pole measuring up to 5 cm. No hydronephrosis or nephrolithiasis is identified. There is thickening of the urinary bladder wall which is only partially distended with Magdaleno cath eter seen in place. This may be secondary to degree of distention however cystitis is not excluded. The stomach, small bowel, and appendix are normal in appearance. There are multiple diverticula noted throughout the large bowel with no pericolonic fat stranding or bowel wall thickenin g. No bowel obstruction is identified. No lymphadenopathy i s identified in the abdomen or pelvis. No free fluid or free air. The IV C is normal. There are atherosclerotic calcifications of the abdominal ao rta. There is aneurysmal dilatation of the infrarenal abdominal aorta kenneth suring up to 3.4 x 3.3 cm. There are moderate degenerative changes throughout the thoracolumbar spine with leftward scoliotic curvature. IMPRESSION: No acute abnormality in the abdomen or pelvis. Thickening of the urinary bladder wall which may be secondary to degree of distention however cystitis is not excluded. Correlate with PAGE 1 Signed Report (CONTINUED) Name: BERENICE CHAUDHRY [facility] S[place] : [birth year] Age/S: 73 / M [id number] Unit #: [id number] Loc: [place] [address] Phys: Almas Santiago Acct: [id number] Dis Date: Status: [facility] PHONE #: Exam Date: 04/06/2019 1054 FAX #: Reason: diffuse pain EXAMS: CPT: [id number] CT ABD PELVIS W/CONT 57863 <Continued> urinalysis. Diverticulosis without evidence of acute diverticulitis. Aneurysmal dilatation of the infrarenal abdominal aorta measuring 3.4 x 3.3 cm with significant atherosclerotic disease noted. Moderate degenerative changes of the thoracolumbar spine with leftward scoliotic curvature. Multiple cysts noted within both kidneys. LOCATION: B2 This CT exam was performed according to our departmental dose optimization program, which includes automated exposure control, adjustment of the mA and or kV according to patient size and/or use of iterative reconstruction technique. at 1103 Reported and signed by: Lilliana Sanz M.D. CC: Almas Santiago DO Technologist:Aurora Villa RT(R)(CT); Adin CTDI: DLP: Trnscb Date/Time: 04/06/2019 (1103) [id number] Orig Print D/T: S: 04/06/2019 (8052) PAGE 2 Signed Report UA RFLX MICR CULT IF [id number] 10:14:00* Test Item Value Reference Range Comments UA COLOR (test code=COLU) YELLOW discript YEL/STRAW UA APPEARANCE (test code=APPU) CLEAR discript CLEAR UA GLUCOSE DIPSTICK (test code=DGLUU) NEGATIVE mg/dL NEG UA BILIRUBIN DIPSTICK (test code=BILU) NEGATIVE mg/dL NEG UA KETONE DIPSTICK (test code=KETU) NEGATIVE mg/dL NEG UA SPECIFIC GRAVITY (test code=SGU) 1.010 SG 1.005-1.030 UA BLOOD DIPSTICK (test code=FELECIA) 3+ mg/DL NEG UA PH DIPSTICK (test code=JAKUB) 8.0 pH UNITS 5.0-7.0 UA PROTEIN DIPSTICK (test code=PROU) NEGATIVE mg/dL NEG UA UROBILINIOGEN DIPSTICK (test code=URO) 0.2 mg/dL <2.0 UA NITRITE DIPSTICK (test code=JHONATHAN) POSITIVE SCREEN NEG UA LEUKOCYTE ESTERASE DIPSTICK (test code=LEUU) 1+ Leuk/mcL NEGATIVE UA WBC (test code=WBCU) 5-10 #WBC/HPF 0-3 UA RBC (test code=RBCU) 40-50 #RBC/HPF 0-3 UA BACTERIA (test code=BACU) 3+ /HPF NONE-TRACE UA SQUAMOUS CELLS (test code=SQU) TRACE /HPF NONE UA CULTURE NEEDED? (test code=UACULT) NO, WBC<10 Criteria Culture CHK SOURCE OF URINE: MAGDALENO CATHETERIndication for culture: Suprapubic Pain COMPREHENSIVE METABOLIC [id number] 10:05:00* Test Item Value Reference Range Comments SODIUM (test code=NA) 141 mmol/L 134-147 POTASSIUM (test code=K) 3.5 mmol/L 3.4-5.0 CHLORIDE (test code=CL) 103 mmol/L 100-108 CARBON DIOXIDE (test code=CO2) 33 mmol/L 21-32 ANION GAP (test code=GAP) 5.0 GAP calc 4.0-15.0 GLUCOSE (test code=GLU) 117 MG/DL 70-110 BLOOD UREA NITROGEN (test code=BUN) 19 MG/DL 7-18 GLOMERULAR FILTRATION RATE (test code=GFR) 46 estGFR >60 CREATININE (test code=CREAT) 1.6 MG/DL 0.8-1.3 TOTAL PROTEIN (test code=PROT) 6.8 G/DL 6.4-8.2 ALBUMIN (test code=ALB) 3.7 G/DL 3.4-5.0 GLOBULIN (test code=GLOB) 3.1 GM/dL ALBUMIN/GLOBULIN RATIO (test code=A/G) 1.2 RATIO 1.2-2.2 CALCIUM (test code=CA) 9.1 MG/DL 8.5-10.1 BILIRUBIN TOTAL (test code=BILT) 0.30 MG/DL 0.2-1.2 SGOT/AST (test code=AST) 24 Unit/L 15-37 SGPT/ALT (test code=ALT) 30 Unit/L 12-78 ALKALINE PHOSPHATASE TOTAL (test code=ALKP) 123 Unit/L 50-136 [id number] 10:05:00* Test Item Value Reference Range Comments LIPASE (test code=LIP) 83 Unit/L 114-286 UA RFLX MICR CULT IF [id number] 10:04:00* Test Item Value Reference Range Comments UA COLOR (test code=COLU) YELLOW discript YEL/STRAW UA APPEARANCE (test code=APPU) CLEAR discript CLEAR UA GLUCOSE DIPSTICK (test code=DGLUU) NEGATIVE mg/dL NEG UA BILIRUBIN DIPSTICK (test code=BILU) NEGATIVE mg/dL NEG UA KETONE DIPSTICK (test code=KETU) NEGATIVE mg/dL NEG UA SPECIFIC GRAVITY (test code=SGU) 1.010 SG 1.005-1.030 UA BLOOD DIPSTICK (test code=FELECIA) 3+ mg/DL NEG UA PH DIPSTICK (test code=JAKUB) 8.0 pH UNITS 5.0-7.0 UA PROTEIN DIPSTICK (test code=PROU) NEGATIVE mg/dL NEG UA UROBILINIOGEN DIPSTICK (test code=URO) 0.2 mg/dL <2.0 UA NITRITE DIPSTICK (test code=JHONATHAN) POSITIVE SCREEN NEG UA LEUKOCYTE ESTERASE DIPSTICK (test code=LEUU) 1+ Leuk/mcL NEGATIVE UA CULTURE NEEDED? (test code=UACULT) Criteria Culture CHK SOURCE OF URINE: MAGDALENO CATHETERIndication for culture: Suprapubic Pain COMPREHENSIVE METABOLIC [id number] 10:04:00* Test Item Value Reference Range Comments SODIUM (test code=NA) mmol/L 134-147 POTASSIUM (test code=K) mmol/L 3.4-5.0 CHLORIDE (test code=CL) 103 mmol/L 100-108 CARBON DIOXIDE (test code=CO2) 33 mmol/L 21-32 ANION GAP (test code=GAP) 5.0 GAP calc 4.0-15.0 GLUCOSE (test code=GLU) 117 MG/DL 70-110 BLOOD UREA NITROGEN (test code=BUN) 19 MG/DL 7-18 GLOMERULAR FILTRATION RATE (test code=GFR) 46 estGFR >60 CREATININE (test code=CREAT) 1.6 MG/DL 0.8-1.3 TOTAL PROTEIN (test code=PROT) 6.8 G/DL 6.4-8.2 ALBUMIN (test code=ALB) 3.7 G/DL 3.4-5.0 GLOBULIN (test code=GLOB) 3.1 GM/dL ALBUMIN/GLOBULIN RATIO (test code=A/G) 1.2 RATIO 1.2-2.2 CALCIUM (test code=CA) 9.1 MG/DL 8.5-10.1 BILIRUBIN TOTAL (test code=BILT) 0.30 MG/DL 0.2-1.2 SGOT/AST (test code=AST) 24 Unit/L 15-37 SGPT/ALT (test code=ALT) 30 Unit/L 12-78 ALKALINE PHOSPHATASE TOTAL (test code=ALKP) 123 Unit/L 50-136 [id number] 10:04:00* Test Item Value Reference Range Comments LIPASE (test code=LIP) 83 Unit/L 114-286 CBC W/AUTO [id number] 10:00:00* Test Item Value Reference Range Comments WHITE BLOOD CELL (test code=WBC) 3.2 K/mm3 3.5-11.0 RED BLOOD CELL (test code=RBC) 3.59 M/mm3 4.70-6.10 HEMOGLOBIN (test code=HGB) 10.2 G/DL 12.3-15.9 HEMATOCRIT (test code=HCT) 31.8 % 35.8-46.7 MEAN CELL VOLUME (test code=MCV) 88.6 Fl 86.3-98.9 MEAN CELL HGB (test code=MCH) 28.4 pg 28.9-34.4 MEAN CELL HGB CONCETRATION (test code=MCHC) 32.1 G/DL 32.1-34.5 RED CELL DISTRIBUTION WIDTH (test code=RDW) 17.4 SD 11.5-14.5 PLATELET COUNT (test code=PLT) 134.0 K/mm3 150-450 MEAN PLATELET VOLUME (test code=MPV) 9.90 fL 7.0-9.6 NEUTROPHIL % (test code=NT%) 75.0 % 40-76 LYMPHOCYTE % (test code=LY%) 13.0 % 20.5-51.1 MONOCYTE % (test code=MO%) 6.8 % 1.7-9.3 EOSINOPHIL % (test code=EO%) 4.6 % 0.0-6.0 BASOPHIL % (test code=BA%) 0.6 % 0.0-2.0 NEUTROPHIL # (test code=NT#) 2.43 K/mm3 1.8-7.6 LYMPHOCYTE # (test code=LY#) 0.4 K/mm3 0.6-3.0 MONOCYTE # (test code=MO#) 0.2 K/mm3 0.2-1.5 EOSINOPHIL # (test code=EO#) 0.2 K/mm3 0.0-0.4 BASOPHIL # (test code=BA#) 0.0 K/mm3 0.0-0.2 MANUAL DIFF REQUIRED (test code=MDIFF) NO DIFF/SCN CRITERIA COMPREHENSIVE METABOLIC [id number] 04:08:00* Test Item Value Reference Range Comments SODIUM (test code=NA) 141 mmol/L 134-147 POTASSIUM (test code=K) 3.1 mmol/L 3.4-5.0 CHLORIDE (test code=CL) 101 mmol/L 100-108 CARBON DIOXIDE (test code=CO2) 35 mmol/L 21-32 ANION GAP (test code=GAP) 5.0 GAP calc 4.0-15.0 GLUCOSE (test code=GLU) 160 MG/DL 70-110 BLOOD UREA NITROGEN (test code=BUN) 19 MG/DL 7-18 GLOMERULAR FILTRATION RATE (test code=GFR) 42 estGFR >60 CREATININE (test code=CREAT) 1.7 MG/DL 0.8-1.3 TOTAL PROTEIN (test code=PROT) 6.3 G/DL 6.4-8.2 ALBUMIN (test code=ALB) 3.4 G/DL 3.4-5.0 GLOBULIN (test code=GLOB) 2.9 GM/dL ALBUMIN/GLOBULIN RATIO (test code=A/G) 1.2 RATIO 1.2-2.2 CALCIUM (test code=CA) 9.0 MG/DL 8.5-10.1 BILIRUBIN TOTAL (test code=BILT) 0.30 MG/DL 0.2-1.2 SGOT/AST (test code=AST) 36 Unit/L 15-37 SGPT/ALT (test code=ALT) 29 Unit/L 12-78 ALKALINE PHOSPHATASE TOTAL (test code=ALKP) 101 Unit/L 50-136 [id number] 04:08:00* Test Item Value Reference Range Comments MAGNESIUM (test code=MAG) 2.4 MG/DL 1.8-2.4 CBC W/AUTO [id number] 03:58:00* Test Item Value Reference Range Comments WHITE BLOOD CELL (test code=WBC) 3.5 K/mm3 3.5-11.0 RED BLOOD CELL (test code=RBC) 3.36 M/mm3 4.70-6.10 HEMOGLOBIN (test code=HGB) 9.8 G/DL 12.3-15.9 HEMATOCRIT (test code=HCT) 29.8 % 35.8-46.7 MEAN CELL VOLUME (test code=MCV) 88.7 Fl 86.3-98.9 MEAN CELL HGB (test code=MCH) 29.2 pg 28.9-34.4 MEAN CELL HGB CONCETRATION (test code=MCHC) 32.9 G/DL 32.1-34.5 RED CELL DISTRIBUTION WIDTH (test code=RDW) 17.7 SD 11.5-14.5 PLATELET COUNT (test code=PLT) 164.0 K/mm3 150-450 MEAN PLATELET VOLUME (test code=MPV) 9.40 fL 7.0-9.6 NEUTROPHIL % (test code=NT%) 65.0 % 40-76 LYMPHOCYTE % (test code=LY%) 17.9 % 20.5-51.1 MONOCYTE % (test code=MO%) 9.4 % 1.7-9.3 EOSINOPHIL % (test code=EO%) 6.3 % 0.0-6.0 BASOPHIL % (test code=BA%) 1.4 % 0.0-2.0 NEUTROPHIL # (test code=NT#) 2.29 K/mm3 1.8-7.6 LYMPHOCYTE # (test code=LY#) 0.6 K/mm3 0.6-3.0 MONOCYTE # (test code=MO#) 0.3 K/mm3 0.2-1.5 EOSINOPHIL # (test code=EO#) 0.2 K/mm3 0.0-0.4 BASOPHIL # (test code=BA#) 0.1 K/mm3 0.0-0.2 MANUAL DIFF REQUIRED (test code=MDIFF) NO DIFF/SCN CRITERIA BASIC METABOLIC [id number] 05:42:00* Test Item Value Reference Range Comments SODIUM (test code=NA) 141 mmol/L 134-147 POTASSIUM (test code=K) 3.0 mmol/L 3.4-5.0 CHLORIDE (test code=CL) 100 mmol/L 100-108 CARBON DIOXIDE (test code=CO2) 38 mmol/L 21-32 ANION GAP (test code=GAP) 3.0 GAP calc 4.0-15.0 GLUCOSE (test code=GLU) 87 MG/DL 70-110 BLOOD UREA NITROGEN (test code=BUN) 19 MG/DL 7-18 GLOMERULAR FILTRATION RATE (test code=GFR) 37 estGFR >60 CREATININE (test code=CREAT) 1.9 MG/DL 0.8-1.3 CALCIUM (test code=CA) 9.0 MG/DL 8.5-10.1 CBC W/AUTO [id number] 05:20:00* Test Item Value Reference Range Comments WHITE BLOOD CELL (test code=WBC) 3.1 K/mm3 3.5-11.0 RED BLOOD CELL (test code=RBC) 3.18 M/mm3 4.70-6.10 HEMOGLOBIN (test code=HGB) 9.3 G/DL 12.3-15.9 HEMATOCRIT (test code=HCT) 27.9 % 35.8-46.7 MEAN CELL VOLUME (test code=MCV) 87.7 Fl 86.3-98.9 MEAN CELL HGB (test code=MCH) 29.2 pg 28.9-34.4 MEAN CELL HGB CONCETRATION (test code=MCHC) 33.3 G/DL 32.1-34.5 RED CELL DISTRIBUTION WIDTH (test code=RDW) 17.6 SD 11.5-14.5 PLATELET COUNT (test code=PLT) 154.0 K/mm3 150-450 MEAN PLATELET VOLUME (test code=MPV) 9.60 fL 7.0-9.6 NEUTROPHIL % (test code=NT%) 54.6 % 40-76 LYMPHOCYTE % (test code=LY%) 22.4 % 20.5-51.1 MONOCYTE % (test code=MO%) 12.3 % 1.7-9.3 EOSINOPHIL % (test code=EO%) 8.8 % 0.0-6.0 BASOPHIL % (test code=BA%) 1.9 % 0.0-2.0 NEUTROPHIL # (test code=NT#) 1.68 K/mm3 1.8-7.6 LYMPHOCYTE # (test code=LY#) 0.7 K/mm3 0.6-3.0 MONOCYTE # (test code=MO#) 0.4 K/mm3 0.2-1.5 EOSINOPHIL # (test code=EO#) 0.3 K/mm3 0.0-0.4 BASOPHIL # (test code=BA#) 0.1 K/mm3 0.0-0.2 MANUAL DIFF REQUIRED (test code=MDIFF) NO DIFF/SCN CRITERIA [id number] 23:48:00* Test Item Value Reference Range Comments TROPONIN-I (test code=TROPI) < 0.015 NG/ML 0.000-0.045 Negative: </=0.045 Positive: >/=0.046 Correlation with serial results, other cardiac markers, and clinical findings is necessary to determine the clinical significance of this result. Quantitative results using different methodologies should not be compared to one another as numerical results may varyby method. Completed by Nursing: [id number] 20:00:00* Test Item Value Reference Range Comments TROPONIN-I (test code=TROPI) < 0.015 NG/ML 0.000-0.045 Negative: </=0.045 Positive: >/=0.046 Correlation with serial results, other cardiac markers, and clinical findings is necessary to determine the clinical significance of this result. Quantitative results using different methodologies should not be compared to one another as numerical results may varyby method. Completed by Nursing: NOCBC W/AUTO [id number] 17:21:00* Test Item Value Reference Range Comments WHITE BLOOD CELL (test code=WBC) 4.1 K/mm3 3.5-11.0 RED BLOOD CELL (test code=RBC) 3.39 M/mm3 4.70-6.10 HEMOGLOBIN (test code=HGB) 9.6 G/DL 12.3-15.9 HEMATOCRIT (test code=HCT) 29.3 % 35.8-46.7 MEAN CELL VOLUME (test code=MCV) 86.4 Fl 86.3-98.9 MEAN CELL HGB (test code=MCH) 28.3 pg 28.9-34.4 MEAN CELL HGB CONCETRATION (test code=MCHC) 32.8 G/DL 32.1-34.5 RED CELL DISTRIBUTION WIDTH (test code=RDW) 17.4 SD 11.5-14.5 PLATELET COUNT (test code=PLT) 180.0 K/mm3 150-450 MEAN PLATELET VOLUME (test code=MPV) 9.90 fL 7.0-9.6 NEUTROPHIL % (test code=NT%) 67.5 % 40-76 LYMPHOCYTE % (test code=LY%) 15.0 % 20.5-51.1 MONOCYTE % (test code=MO%) 11.1 % 1.7-9.3 EOSINOPHIL % (test code=EO%) 5.2 % 0.0-6.0 BASOPHIL % (test code=BA%) 1.2 % 0.0-2.0 NEUTROPHIL # (test code=NT#) 2.75 K/mm3 1.8-7.6 LYMPHOCYTE # (test code=LY#) 0.6 K/mm3 0.6-3.0 MONOCYTE # (test code=MO#) 0.5 K/mm3 0.2-1.5 EOSINOPHIL # (test code=EO#) 0.2 K/mm3 0.0-0.4 BASOPHIL # (test code=BA#) 0.1 K/mm3 0.0-0.2 MANUAL DIFF REQUIRED (test code=MDIFF) NO DIFF/SCN CRITERIA COMPREHENSIVE METABOLIC [id number] 17:12:00* Test Item Value Reference Range Comments SODIUM (test code=NA) 136 mmol/L 134-147 POTASSIUM (test code=K) 2.7 mmol/L 3.4-5.0 CHLORIDE (test code=CL) 96 mmol/L 100-108 CARBON DIOXIDE (test code=CO2) 35 mmol/L 21-32 ANION GAP (test code=GAP) 5.0 GAP calc 4.0-15.0 GLUCOSE (test code=GLU) 107 MG/DL 70-110 BLOOD UREA NITROGEN (test code=BUN) 22 MG/DL 7-18 GLOMERULAR FILTRATION RATE (test code=GFR) 32 estGFR >60 CREATININE (test code=CREAT) 2.2 MG/DL 0.8-1.3 TOTAL PROTEIN (test code=PROT) 6.7 G/DL 6.4-8.2 ALBUMIN (test code=ALB) 3.7 G/DL 3.4-5.0 GLOBULIN (test code=GLOB) 3.0 GM/dL ALBUMIN/GLOBULIN RATIO (test code=A/G) 1.2 RATIO 1.2-2.2 CALCIUM (test code=CA) 8.6 MG/DL 8.5-10.1 BILIRUBIN TOTAL (test code=BILT) 0.50 MG/DL 0.2-1.2 SGOT/AST (test code=AST) 48 Unit/L 15-37 SGPT/ALT (test code=ALT) 33 Unit/L 12-78 ALKALINE PHOSPHATASE TOTAL (test code=ALKP) 116 Unit/L 50-136 Completed by Nursing: NONT PRO-BRAIN NATRIURETIC [id number] 17:12:00* Test Item Value Reference Range Comments NT PRO-BRAIN NATRIURETIC PEPTI (test code=PROBNP) 142 PG/ML 0-100 Completed by Nursing: [id number] 17:12:00* Test Item Value Reference Range Comments TROPONIN-I (test code=TROPI) < 0.015 NG/ML 0.000-0.045 Negative: </=0.045 Positive: >/=0.046 Correlation with serial results, other cardiac markers, and clinical findings is necessary to determine the clinical significance of this result. Quantitative results using different methodologies should not be compared to one another as numerical results may varyby method. Completed by Nursing: NO- XR CHEST 1 [id number] 16:56:00 Name: BERENICE CHAUDHRY [facility] : 1945 Age/S: 73 / M [address] Unit #: [id number] Loc: [place] [address] Phys: Ana M Gasca MD Acct: [id number] Di s Date: Status: PRE ER PHONE #: Exam Date: 03/18/2019 1650 FAX #: Reason: dyspnea, fluid overload EXAMS: CPT: [id number] XR CHEST 1 V 68918 Fluoro Time: DAP (Gy m2): Air Kerma (mGy): LOCATION: V20 EXAM: - XR CHEST 1 V HISTORY: dyspnea, fluid overload TECHNI QUE: Frontal view of the chest. COMPARISON: 09/23/2018 FINDINGS: The lungs are adequately inflated and clear. No evidence of pneumothorax or pleural effusion. Normal heart size. Media stinal contours are within normal limits. Partially visualized po stsurgical changes of the lower cervical spine. Intrathecal stimulator wi res are again noted. IMPRESSION: No evidence of acute ca rdiopulmonary disease. at 1656 Reported and signed by: Chapo New CC: Leoncio Gasca MD PAGE 1 Signed Report Name: BERENICE CHAUDHRY [facility] : 1945 Age/S: 73 / M [address] Unit #: [id number] Loc: [place] [address] Phys: Donovan Gasca MD Acct: [id number] Dis Date: Status: PRE ER PHONE #: [phone] Exam Date: 03/18/2019 1650 FAX #: Reason: dyspnea, fluid overload EXAMS: CPT: [id number] XR CHEST 1 V 14816 Fluoro Time: DAP (Gy m2): Air Kerma (mGy): <Continued> Technologist: Chuy Lang RT(R)(CT) Trnmnb Date/Time: 03/18/2019 (2056) [id number] Orig Print D/T: S: 03/18/2019 (1828) PAGE 2 Signed Report
[2019-09-03 16:42] VITALS: BP 141/72
== END | disposition home or self-care (01) ==
LOC: OR 12:31
PROVIDERS: ATTEND Internal Medicine Gastroenterology
DX: Z12.11 Encounter for screening for malignant neoplasm of colon (principal); D12.3 Benign neoplasm of transverse colon; K29.70 Gastritis, unspecified, without bleeding; K20.9 Esophagitis, unspecified; K63.89 Other specified diseases of intestine; K59.00 Constipation, unspecified; K57.30 Diverticulosis of large intestine without perforation or abscess without bleeding; K64.8 Other hemorrhoids; I11.0 Hypertensive heart disease with heart failure; I50.9 Heart failure, unspecified; D50.9 Iron deficiency anemia, unspecified; Z01.810 Encounter for preprocedural cardiovascular examination; Z79.82 Long term (current) use of aspirin; Z85.46 Personal history of malignant neoplasm of prostate; Z92.3 Personal history of irradiation
CPT/HCPCS: 43239; 45380; 45385; 93005; J2704; 45378